=== PATIENT | male | born 1960 | race Caucasian/White ===

== ENCOUNTER 2020-04-25 23:01 | Inpatient (IN) | payer SELFPAY ==
[~2020-04-25] VITALS: Ht 185.4 cm; Wt 60.3 kg
[2020-04-25 23:18] VITALS: BP 212/107
--- NOTE | 2020-04-25 23:30 | NUR ---
ermd at bedside evaluating pt
--- NOTE | 2020-04-25 23:30 | NUR ---
60 y/o male c/o rlq abdominal pain radiating to lower back x 12 hours. +nausea. pt states 7/10 sharp pain. abd soft non tender. bowel soudns active. lung sounds cla. cap refill <3 seconds. skin warm and dry. pmhx: denies nka
--- NOTE | 2020-04-25 23:35 | NUR ---
blood collected and sent to lab
[2020-04-25] MEDS ORDERED: NACL 0.9% 1,000 ML IV SCH (23:43)
[2020-04-25] MEDS ORDERED: ONDANSETRON 4 MG/2 ML VIAL IVP ONE (23:45)
[2020-04-25] MEDS ORDERED: MORPHINE SULFATE 4 MG/ML SYR IVP ONE (23:45)
[2020-04-25 23:55] LABS: BASOPHILS % (AUTO) 0.1 % (0.0-2.0); EOSINOPHILS % (AUTO) 0.1 % (0.0-4.0); HEMATOCRIT 41.4 % (36-52); HEMOGLOBIN 14.1 g/dL (12.0-18.0); LYMPHOCYTES # (AUTO) 0.5 K/uL (2.0-11.5); LYMPHOCYTES % (AUTO) 3.9 % (20.5-51.1); MEAN CORPUSCULAR HEMOGLOBIN 32 pg (27-31); MEAN CORPUSCULAR HGB CONC 34 g/dL (33-37); MONOCYTES # (AUTO) 0.4 K/uL (0.8-1.0); MONOCYTES % (AUTO) 3.6 % (1.7-9.3); NEUTROPHILS # (AUTO) 10.9 K/uL (1.8-7.7); NEUTROPHILS % (AUTO) 92.3 % (42.2-75.2); PLATELET COUNT (AUTO) 231 K/uL (140-450); RED CELL DISTRIBUTION WIDTH 12.5 % (11.6-13.7); WHITE BLOOD COUNT (AUTO) 11.8 K/uL (4.8-10.8)
[2020-04-26 00:10] LABS: ALBUMIN 4.5 g/dL (3.4-5.0); ANION GAP 18.3 (8-16); CARBON DIOXIDE 24.9 mmol/L (21-32); CREATININE 1.4 mg/dL (0.6-1.3); POTASSIUM 4.2 mmol/L (3.5-5.1); TOTAL BILIRUBIN 0.7 mg/dL (0.0-1.0)
--- NOTE | 2020-04-26 00:18 | NUR ---
urine collected and sent to lab
[2020-04-26 00:30] LABS: APPEARANCE,URINE CLEAR (CLEAR); BILIRUBIN,URINE NEGATIVE (NEGATIVE); BLOOD, URINE 3+ (NEGATIVE); COLOR,URINE YELLOW (YELLOW); LEUKOCYTE ESTERASE ,URINE NEGATIVE (NEGATIVE); NITRITE, URINE NEGATIVE (NEGATIVE); UGLUCOSE NEGATIVE (NEGATIVE)
[2020-04-26 00:48] LABS: RBC,URINE 20-50 /HPF (0-5)
--- NOTE | 2020-04-26 02:05 | NUR ---
PT'S BLOOD PRESSURE 196/96. ERMD NOTIFIED.
--- NOTE | 2020-04-26 02:06 | NUR ---
ERMD AT BEDSIDE EXAMINING PT
[2020-04-26] MEDS ORDERED: NACL 0.9% 1,000 ML IV ONE (02:50)
--- NOTE | 2020-04-26 03:45 | NUR ---
Patient will be admitted to care of DR PARIS. Admited to TELEMETRY. Will go to room 112A. Belongings list completed. Report to MELLISSA CARNES.
--- NOTE | 2020-04-26 04:00 | NUR ---
ADMITTED 60, M[facility], [facility]. ER. NO SOB, ON ROOM AIR, DENIES PAIN, AMBULATORY, AAOX4, MRSA SWAB DONE, V/S TAKEN, ORIENTED TO ROOM. ANSWERED QUESTIONS. PLAN OF CARE DISCUSSED, SAFETY MEASURES IN PLACE, CALL LIGHT WITHIN REACH.
[2020-04-26] MEDS ORDERED: hydrALAZINE 20 MG/ML VIAL IVP SCH (04:20)
[2020-04-26] MEDS: NACL 0.9% 1,000 ML IV SCH ×2 (06:16→22:08)
[2020-04-26] MEDS ORDERED: LORazepam 2 MG/ML VIAL IM/IVP PRN (06:20)
[2020-04-26] MEDS ORDERED: DOCUSATE SODIUM 100 MG GELCAP PO PRN (06:20)
[2020-04-26] MEDS ORDERED: ONDANSETRON 4 MG/2 ML VIAL IVP PRN (06:20)
[2020-04-26] MEDS ORDERED: ACETAMINOPHEN 325 MG TAB PO PRN (06:20)
[2020-04-26] MEDS ORDERED: MORPHINE SULFATE 2 MG/ML SYR IVP PRN (06:20)
[2020-04-26] MEDS ORDERED: ZOLPIDEM 5 MG TAB PO PRN (06:20)
[2020-04-26] MEDS ORDERED: HYDROcodone/APAP 5/325 MG 1 TAB TAB PO PRN (06:20)
--- NOTE | 2020-04-26 06:57 | NUR ---
INFORMED DR. PARIS RE: RECHECKED OF BP WHICH WAS 181/83 HR 74. ORDERED CONSULT TO FLAQUITA HERNANDEZ (CARDIO) AND METOPROLOL 25MG PO BID. ORDERS NOTED AND CARRIED OUT.
--- NOTE | 2020-04-26 07:30 | NUR ---
PATIENT IS NOT IN ANY ACUTE DISTRESS, STABLE CONDITION, BEDSIDE ENDORSEMENT GIVEN TO AM SHIFT RN FOR CONTINUITY OF CARE.
[2020-04-26 07:32] LABS: BARBITURATE, URINE NEGATIVE ng/ml (NEG <=200); BENZODIAZEPINE, URINE NEGATIVE ng/mL (NEG <=200); CANNABINOID, URINE NEGATIVE ng/mL (NEG <=50); COCAINE, URINE NEGATIVE ng/mL (NEG <=300); OPIATE, URINE NEGATIVE ng/mL (NEG <=2000); PHENCYCLIDINE SCREEN,URINE NEGATIVE ng/mL (NEG <=25)
[2020-04-26 08:15] VITALS: BP 181/83
[2020-04-26] MEDS: TAMSULOSIN 0.4 MG CAP PO SCH (08:38)
[2020-04-26] MEDS ORDERED: ENALAPRILAT 2.5 MG/2 ML VIAL IVP SCH (08:45)
[2020-04-26] MEDS ORDERED: METOPROLOL 25 MG TAB PO SCH ×2 (09:00→19:00)
--- NOTE | 2020-04-26 09:15 | NUR ---
PATIENT HAS BEEN SCREENED AND CATEGORIZED HIGH NUTRITION RISK. PATIENT WILL BE SEEN WITHIN 1-2 DAYS OF ADMISSION. 04/26/20-04/27/[address]
--- NOTE | 2020-04-26 09:19 | NUR ---
DC PLANNIN YRS OLD MALE PATIENT WAS ADMITTED FROM HOME WITH A DX OF RIGHT SIDED KIDNEY STONE. PATIENT HAS NO MEDICAL HISTORY. CT ABD/PELVIS SHOWED MID URETHRAL OBSTRUCTING STONE . URINE AND BLOOD CULTURE PENDING. STARTED IVF, IV ABX WITH ROCEPHIN AND SYDNIE MANAGEMENT. CONSULTED WITH UROLOGIST DR ALCAZAR. DC PLAN TO GO HOME WHEN STABLE. CM TO FOLLOW.
[2020-04-26 09:47] LABS: BASOPHILS % (AUTO) 0.3 % (0.0-2.0); EOSINOPHILS % (AUTO) 0.1 % (0.0-4.0); HEMATOCRIT 39.5 % (36-52); HEMOGLOBIN 13.6 g/dL (12.0-18.0); LYMPHOCYTES # (AUTO) 0.9 K/uL (2.0-11.5); MEAN CORPUSCULAR HEMOGLOBIN 32 pg (27-31); MEAN CORPUSCULAR HGB CONC 34 g/dL (33-37); MEAN CORPUSCULAR VOLUME 93.5 fL (80-94); MONOCYTES # (AUTO) 1.2 K/uL (0.8-1.0); MONOCYTES % (AUTO) 9.2 % (1.7-9.3); NEUTROPHILS # (AUTO) 10.7 K/uL (1.8-7.7); NEUTROPHILS % (AUTO) 83.4 % (42.2-75.2); PLATELET COUNT (AUTO) 224 K/uL (140-450); RED BLOOD CELL COUNT(AUTO) 4.22 MIL/uL (4.20-6.10); RED CELL DISTRIBUTION WIDTH 12.5 % (11.6-13.7); WHITE BLOOD COUNT (AUTO) 12.8 K/uL (4.8-10.8)
[2020-04-26 10:18] LABS: PROTHROMBIN TIME 10.6 secs (10.8-13.4)
[2020-04-26 10:24] LABS: ALBUMIN 3.8 g/dL (3.4-5.0); ANION GAP 11.9 (8-16); CARBON DIOXIDE 29.2 mmol/L (21-32); CREATININE 1.3 mg/dL (0.6-1.3); POTASSIUM 4.1 mmol/L (3.5-5.1); TOTAL BILIRUBIN 0.8 mg/dL (0.0-1.0)
[2020-04-26 10:28] LABS: CHOL/HDL RATIO 2.5 (1-4.5); FREE T4 (FREE THYROXINE) 0.75 ng/dL (0.76-1.46); MAGNESIUM 1.6 mg/dL (1.8-2.4); PHOSPHORUS 2.6 mg/dL (2.5-4.9); THYROID STIMULATING HORMONE 1.73 uIU/mL (0.34-3.74)
[2020-04-26] MEDS ORDERED: DEXTROSE 50% 50 ML SYR IVP PRN (11:35)
[2020-04-26] MEDS: INSULIN LISPRO SLIDING SCALE 100 UNITS/ML VIAL SUBQ PRN ×2 (11:48→16:58)
[2020-04-26] MEDS: BLOOD GLUCOSE MONITORING 1 DEV DEV FS SCH ×2 (11:48→16:57)
[2020-04-26] MEDS ORDERED: MAG SULF 2000 MG/WATER PREMIX 50 ML IV SCH (12:00)
[2020-04-26 12:30] VITALS: BP 147/68
--- NOTE | 2020-04-26 12:43 | NUR ---
REGISTRATION REPRESENTATIVE NOTE: Patient's Orientation Unable To Assess Information Provided By HUSEYIN ENGLE - Comments SW WAS UNABLE TO SPEAK TO PATIENT AT BEDSIDE. SHYAM CONTACTED ROOM PHONE BUT PATIENT DID NOT ANSWER. SHYAM CONTACTED EMERGENCY CONTACT TO COMPLETE ASSESSMENT. HUSEYIN PROVIDED ADDITIONAL EMERGENCY CONTACT FOR FATHER THALIA SINGER. Environmental Laboratory Technician, Realtionship and Phone Number HUSEYIN BEAN [phone] THALIA SINGER FATHER [phone] Healthcare Power of Furnace Operator Oil Or [employer] No Does Patient Have a POLST No Identifying Problems No Social Work Triggers Is A Social Work Consult Needed No Mandate Report Filed No Explanation Of Identifying Problems PATIENT IS A 60-YEAR-OLD MALE ADMITTED FOR RIGHT SIDED KIDNEY STONE. PATIENT HAS NO PERTINENT PMHX. HUSEYIN REPORTED NO HISTORY OF SUBSTANCE ABUSE OR MENTAL HEALTH. Admitted From Home Pre-Admission Level Of Functioning Status Independent/Ambulatory Level Of Functioning Comment PER HUSEYIN, PATIENT IS INDEPENDENT WITH ALL ADLS. Prior Resources/Services Used In Last 12 Months No Prior Resources Used Prior DME No Prior DME Used Living Situation Lives With Family House Other Living Situation/Comment HUSEYIN STATED THAT PATIENT LIVES WITH HIS STEP DAUGHTER RAJIV ROBERSON. Patient Had Caregiver No Home Support No Caregiver Issues Financial Issues No Known Financial Issue Referral To The Financial Counselor Needed No Factors/Needs No D/C Needs Identified Pt/Rep Participated In Discharge Plan Yes Patient/Family Agress With Discharge Plan Yes Discharge Plan Comments TENTATIVE DISCHARGE PLAN IS FOR PATIENT TO RETURN HOME. DC Plan Status Initiated
--- NOTE | 2020-04-26 13:53 | NUR ---
04/26/20 RD INITIAL ASSESSMENT COMPLETED PLEASE REFER TO NUTRITION ASSESSMENT UNDER CARE ACTIVITY FOR ESTIMATED NUTRITIONAL NEEDS. 1. CONTINUE CARDIAC DIET TOLERATED 2. RD PROVIDED NUTRITION EDUCATION ON LOW SODIUM INTAKE FOR HIGH BLOOD PRESSURE 3. RD TO FOLLOW-UP 3-5 DAYS, MODERATE RISK ANDIE BLACKMON, RD
[2020-04-26 16:00] VITALS: BP 141/77
--- NOTE | 2020-04-26 18:00 | NUR ---
PATIENT LEFT UNIT FOR PROCEDURE.
[2020-04-26] MEDS ORDERED: DESFLURANE 240 ML BTL INH ONE (18:59)
[2020-04-26] MEDS ORDERED: DEXAMETHASONE 4 MG/ML VIAL ONE (18:59)
[2020-04-26] MEDS ORDERED: PROPOFOL 200 MG/20 ML VIAL IV ONE (18:59)
[2020-04-26] MEDS ORDERED: ONDANSETRON 4 MG/2 ML VIAL ONE (18:59)
[2020-04-26] MEDS ORDERED: lisinopriL 10 MG TAB PO SCH (19:00)
[2020-04-26] MEDS ORDERED: cefTRIAXone 1,000 MG VIAL ONE (19:53)
[2020-04-26 20:30] VITALS: BP 149/84
--- NOTE | 2020-04-26 20:30 | NUR ---
PT RETURNED TO THE UNIT AT THIS TIME. PT IS AWAKE AND ORIENTED X 4 CURRENTLY DENIES ANY PAIN OR DISCOMFORT. V/S: 97.6, 60, 16, 149/84, 100 % RA. PAIN 0/10. RECEIVED REPORT FROM OR NURSE PT HAD RIGHT URETHER STENT PLACEMENT. WITH NO COMPLICATIONS. AND RECEIVED ROCEPHIN NO ADVERSE SIDE EFFECTS AT THIS TIME. ALL SAFETY MEASURES IN PLACE. URINAL GIVEN FOR COMFORT AND ENCOURAGED TO CALL STAFF FOR ASSISTANCE TO RESTROOM. WILL CONTINUE TO MONITOR.
--- NOTE | 2020-04-26 22:41 | NUR ---
PT VOIDED X 1 IN URINAL AND HAD BLOOD TINGED URINE 100 ML CONTINUES TO DENY DISCOMFORT . B/P RECHECKED 150/76, 69 MISSED BLOOD PRESSURE WHAT WAS MISSED EARLIER DUE TO SURGERY WERE GIVEN AT THIS TIME. PT ASYMPTOMATIC. PT AMBULATED TO RESTROOM AND HAD BM. PT IS STEADY IN NO DISTRESS. WILL CONTINUE TO MONITOR.
[2020-04-27] VITALS: BP 134/74
--- NOTE | 2020-04-27 00:53 | NUR ---
PT IS RESTING IN BED WITH EYES CLOSED, RESPIRATION EVEN AND UNLABORED. LAYING SUPINE WITH HOB SLIGHTLY ELEVATED. V/S: 97.4, 60, 18, 134/75, 100% RA PAIN 08/26. ALL SAFETY MEASURES REMAIN IN PLACE. CALL LIGHT WITHIN REACH. WILL CONTINUE TO MONITOR.
--- NOTE | 2020-04-27 02:46 | NUR ---
PT ASLEEP, LAYING ON RIGHT LATERAL SIDE. RESPIRATION EVEN AND UNLABORED NO COMPLAINTS. SAFETY MEASURES REMAIN IN PLACE. WILL CONTINUE TO MONITOR.
[2020-04-27 04:00] VITALS: BP 146/86
--- NOTE | 2020-04-27 04:30 | NUR ---
PT RESTING, SLEPT MOST OF THE SHIFT DENIES ANY DISCOMFORT ALL NEEDS MET AT THIS TIME. V/S: 98.4, 60, 18, 146/86, 98% RA PAIN 0/10. CALL LIGHT WITHIN REACH, ENCOURAGED TO SEEK STAFF ASSISTANCE IF NEEDED.
--- NOTE | 2020-04-27 06:33 | NUR ---
PT RESTING COOPERATIVE WITH MORNING ACCU CHECK BS 115 PTS. HGBA1C RESULT CAME BACK AT 5.2 WILL ENDORSE TO AM TO GET ACCU CHECK DISCONTINUED. NO COVERAGE NEEDED. DENIES PAIN, COOPERATIVE WITH BLOOD DRAW, PLEASANT AND COMMUNICATES WANTS AND NEEDS. SAFETY MEASURES IN PLACE, CALL LIGHT WITHIN REACH, ALL NEEDS MET AT THIS TIME.
[2020-04-27] MEDS: BLOOD GLUCOSE MONITORING 1 DEV DEV FS SCH ×2 (06:43→11:30)
[2020-04-27 07:20] LABS: BASOPHILS % (AUTO) 0.2 % (0.0-2.0); EOSINOPHILS % (AUTO) 0.2 % (0.0-4.0); HEMATOCRIT 36.8 % (36-52); HEMOGLOBIN 12.5 g/dL (12.0-18.0); LYMPHOCYTES # (AUTO) 0.7 K/uL (2.0-11.5); LYMPHOCYTES % (AUTO) 8.2 % (20.5-51.1); MEAN CORPUSCULAR HEMOGLOBIN 32 pg (27-31); MEAN CORPUSCULAR HGB CONC 34 g/dL (33-37); MEAN CORPUSCULAR VOLUME 95.1 fL (80-94); MONOCYTES # (AUTO) 0.6 K/uL (0.8-1.0); MONOCYTES % (AUTO) 7.6 % (1.7-9.3); NEUTROPHILS # (AUTO) 6.9 K/uL (1.8-7.7); NEUTROPHILS % (AUTO) 83.8 % (42.2-75.2); PLATELET COUNT (AUTO) 188 K/uL (140-450); RED BLOOD CELL COUNT(AUTO) 3.87 MIL/uL (4.20-6.10); RED CELL DISTRIBUTION WIDTH 12.6 % (11.6-13.7); WHITE BLOOD COUNT (AUTO) 8.3 K/uL (4.8-10.8)
--- NOTE | 2020-04-27 07:20 | NUR ---
PT ENDORSED TO AM RN FOR CONTINUITY OF CARE. PT IS STABLE.
[2020-04-27 07:25] LABS: ANION GAP 8.3 (8-16); CARBON DIOXIDE 29.2 mmol/L (21-32); CREATININE 1.3 mg/dL (0.6-1.3); POTASSIUM 4.5 mmol/L (3.5-5.1)
[2020-04-27 07:27] LABS: MAGNESIUM 2.1 mg/dL (1.8-2.4); PHOSPHORUS 3.3 mg/dL (2.5-4.9)
[2020-04-27 08:22] VITALS: BP 158/79
[2020-04-27] MEDS: TAMSULOSIN 0.4 MG CAP PO SCH (08:29)
[2020-04-27] MEDS ORDERED: METOPROLOL 25 MG TAB PO SCH (09:00)
[2020-04-27] MEDS ORDERED: lisinopriL 10 MG TAB PO SCH (09:00)
[2020-04-27 11:29] VITALS: BP 162/76
[2020-04-27] MEDS ORDERED: LISI-420 PO (12:53)
[2020-04-27] MEDS ORDERED: METO25TA PO (12:53)
[2020-04-27] MEDS ORDERED: SULF-59 PO (12:53)
[2020-04-27 13:36] VITALS: BP 153/74
[2020-04-27 13:37] VITALS: BP 153/74
--- NOTE | 2020-04-27 14:48 | NUR ---
DISCHARGE INSTRUCTIONS PROVIDED TO PATIENT, VERBALIZED UNDERSTANDING. IV ACCESS REMOVED, TOLERATED WELL. WAITING FOR HIS FAMILY TO PICK HIM UP.
[2020-04-28] MEDS ORDERED: lisinopriL 20 MG TAB PO SCH (09:00)
== END 2020-04-27 16:00 | disposition home or self-care (01) | DRG 661 ==
LOC: MED 23:01 → MTU 04-26 02:52
PROVIDERS: ADMIT Family Medicine; ATTEND Family Medicine
PROC: BT1D1ZZ Fluoroscopy of Right Kidney, Ureter and Bladder using Low Osmolar Contrast (ICD-10-PCS; 2020-04-26)
PROC: 0T768DZ Dilation of Right Ureter with Intraluminal Device, Via Natural or Artificial Opening Endoscopic (ICD-10-PCS; principal; 2020-04-26 18:00)
DX: N13.2 Hydronephrosis with renal and ureteral calculous obstruction (principal); N17.0 Acute kidney failure with tubular necrosis; I16.0 Hypertensive urgency; E83.42 Hypomagnesemia; R73.03 Prediabetes; Z82.49 Family history of ischemic heart disease and other diseases of the circulatory system
CPT/HCPCS: 36415; 71045; 76870; 77003; 80048; 80053; 80305; 81001; 82150; 82948; 83036; 83690; 83735; 83880; 84100; 84439; 84443; 84484; 85025; 85610; 85730; 87081; 87086; 93005; 96361; 96374; 96375; 99285; J0360; J0696; J1100; J2270; J2405; J2704; J3475; J3490; J7030; Q0092; Q9967

== ENCOUNTER 2021-03-20 23:43 | Emergency (ER) | payer SELFPAY ==
[~2021-03-20] VITALS: Ht 185.4 cm; Wt 64.4 kg
[~2021-03-20 23:43] MED LIST: LISI20TA29 PO; METO25TA PO; SULF-59 PO
[2021-03-20 23:51] VITALS: BP 234/119
--- NOTE | 2021-03-20 23:55 | NUR ---
PATIENT AMBULATED TO BED 3 WITH STEADY GAIT.
[2021-03-21] MEDS ORDERED: MORPHINE SULFATE 4 MG/ML SYR IVP ONE
[2021-03-21] MEDS ORDERED: ONDANSETRON 4 MG/2 ML VIAL IVP ONE
[2021-03-21] MEDS ORDERED: MORPHINE SULFATE 4 MG/ML SYR ONE (00:01)
[2021-03-21] MEDS ORDERED: ONDANSETRON 4 MG/2 ML VIAL ONE (00:02)
--- NOTE | 2021-03-21 00:04 | NUR ---
LABS DRAWN AND HANDED TO RHONDA FROM LAB
--- NOTE | 2021-03-21 00:11 | NUR ---
CYNTHIA MOHR AT BEDSIDE
[2021-03-21 00:12] LABS: BASOPHILS # (AUTO) 0.1 K/uL (0.00-0.22); BASOPHILS % (AUTO) 0.7 % (0.0-2.0); EOSINOPHILS # (AUTO) 0.4 K/uL (0-0.4); EOSINOPHILS % (AUTO) 3.6 % (0.0-4.0); HEMOGLOBIN 13.4 g/dL (12.0-18.0); LYMPHOCYTES # (AUTO) 1.2 K/uL (2.0-11.5); LYMPHOCYTES % (AUTO) 11.1 % (20.5-51.1); MEAN CORPUSCULAR HEMOGLOBIN 32 pg (27-31); MEAN CORPUSCULAR HGB CONC 35 g/dL (33-37); MEAN CORPUSCULAR VOLUME 94.1 fL (80-94); MONOCYTES # (AUTO) 0.7 K/uL (0.8-1.0); MONOCYTES % (AUTO) 6.2 % (1.7-9.3); NEUTROPHILS # (AUTO) 8.5 K/uL (1.8-7.7); NEUTROPHILS % (AUTO) 78.4 % (42.2-75.2); PLATELET COUNT (AUTO) 224 K/uL (140-450); RED BLOOD CELL COUNT(AUTO) 4.15 MIL/uL (4.20-6.10); RED CELL DISTRIBUTION WIDTH 12.3 % (11.6-13.7); WHITE BLOOD COUNT (AUTO) 10.9 K/uL (4.8-10.8)
[2021-03-21 00:12] LABS: APPEARANCE,URINE CLEAR (CLEAR); BILIRUBIN,URINE NEGATIVE (NEGATIVE); BLOOD, URINE 3+ (NEGATIVE); COLOR,URINE YELLOW (YELLOW); LEUKOCYTE ESTERASE ,URINE NEGATIVE (NEGATIVE); NITRITE, URINE NEGATIVE (NEGATIVE); PH,URINE 5.5 (5.0-9.0); UGLUCOSE NEGATIVE (NEGATIVE)
--- NOTE | 2021-03-21 00:15 | NUR ---
PT. IS A 60 Y/O MALE THAT CAME INTO ED WITH C/O OF ABDOMINAL PAIN. PT. STATES THAT IT IS LOCALIZED IN LEFT LOWER ABDOMEN. PT. STATES 7/10 ON THE PAIN SCALE AT THIS TIME. DENIES FEVER, BUT ADMITS TO NAUSEA AND VOMITTING. WHEN ASKED ABOUT DIARRHEA, PT. STATES "DIARRHEA IS NORMAL FOR ME FOR YEARS. IT'S BEEN ON AND OFF FOR YEARS." PT. ALSO STATES THAT HE HAS BEEN HAVING THE URGE TO PEE TODAY AND ONLY HAS DRIBBLES WHEN HE URINATES. HE ALSO STATES THAT IT HAS A BURNING SENSATION. PT. ALSO STATES THAT HE IS NON COMPLIANT WITH HIS HTN MEDS. AAOX4. PMH: KIDNEY STONES, HTN ALLERGIES: NKA
[2021-03-21] MEDS ORDERED: KETOROLAC 30 MG/ML VIAL IVP ONE (00:25)
[2021-03-21] MEDS ORDERED: hydrALAZINE 20 MG/ML VIAL IVP ONE (00:25)
[2021-03-21 00:27] LABS: RBC,URINE 0-5 /HPF (0-5); WBC,URINE 0-5 /HPF (0-5)
[2021-03-21 00:27] LABS: ALBUMIN 4.1 g/dL (3.4-5.0); ANION GAP 10.8 (8-16); CARBON DIOXIDE 28.2 mmol/L (21-32); CREATININE 1.4 mg/dL (0.6-1.3); TOTAL BILIRUBIN 0.6 mg/dL (0.0-1.0)
[2021-03-21] MEDS ORDERED: CEPH-588 PO (00:39)
[2021-03-21] MEDS ORDERED: HYDR-4004 PO (00:39)
[2021-03-21] MEDS ORDERED: cefTRIAXone 1,000 MG VIAL ONE (00:52)
[2021-03-21 01:35] VITALS: BP 130/75
--- NOTE | 2021-03-21 01:35 | NUR ---
Patient discharged with v/s stable. Written and verbal after care instructions given and explained. Patient alert, oriented and verbalized understanding of instructions. Carried with steady gait. All questions addressed prior to discharge. ID band removed. Patient advised to follow up with PMD. Rx of KEFLEX AND HYDROCHLOROTHIAZIDE given. Patient educated on indication of medication including possible reaction and side effects. Opportunity to ask questions provided and answered.
[2021-03-27] MEDS ORDERED: POTA20PA PO (10:51)
== END 2021-03-21 01:35 | disposition home or self-care (01) ==
LOC: MED 23:43
DX: N39.0 Urinary tract infection, site not specified (principal); E11.65 Type 2 diabetes mellitus with hyperglycemia; E87.6 Hypokalemia
CPT/HCPCS: 36415; 80053; 81001; 85025; 96365; 96375; 99284; J0360; J0696; J1885; J2270; J2405